=== PATIENT | female | born 1975 | race African-American/Black ===

== ENCOUNTER 2016-05-30 13:02 | Emergency (ER) | payer MEDICAID ==
[~2016-05-30] VITALS: Ht 152.4 cm; Wt 119.7 kg
[2016-05-30 13:43] VITALS: BP 132/85
== END 2016-05-30 19:03 | disposition left against medical advice (07) ==
LOC: ER 13:02
DX: M79.605 Pain in left leg (principal); Z53.21 Procedure and treatment not carried out due to patient leaving prior to being seen by health care provider